=== PATIENT | male | born 1990 | race African-American/Black ===

== ENCOUNTER 2016-08-20 14:00 | Emergency (ER) | payer MEDICAID ==
[~2016-08-20] VITALS: Ht 180.3 cm; Wt 89.7 kg
[2016-08-20 19:08] VITALS: BP 132/95
== END 2016-08-20 15:33 | disposition home or self-care (01) ==
LOC: ED 15:27
DX: S62.351A Nondisplaced fracture of shaft of second metacarpal bone, left hand, initial encounter for closed fracture (principal); W22.8XXA Striking against or struck by other objects, initial encounter; Y93.89 Activity, other specified; Y92.410 Unspecified street and highway as the place of occurrence of the external cause; Y99.8 Other external cause status
CPT/HCPCS: 29125

== ENCOUNTER 2016-08-31 14:37 | Emergency (ER) | payer MEDICAID ==
[~2016-08-31] VITALS: Ht 182.9 cm; Wt 88.7 kg
[2016-08-31 14:42] VITALS: BP 117/63
== END 2016-08-31 15:45 | disposition home or self-care (01) ==
LOC: ED 15:10
DX: S62.321A Displaced fracture of shaft of second metacarpal bone, left hand, initial encounter for closed fracture (principal); W51.XXXA Accidental striking against or bumped into by another person, initial encounter; Y93.89 Activity, other specified; Y99.8 Other external cause status; Y92.89 Other specified places as the place of occurrence of the external cause
CPT/HCPCS: 29125; 99284

== ENCOUNTER 2016-12-07 15:44 | Emergency (ER) | payer MEDICAID ==
[~2016-12-07] VITALS: Ht 180.3 cm; Wt 87.9 kg
[2016-12-07] MEDS ORDERED: DIAZEPAM 5 MG TABLET ONE (16:18)
[2016-12-07] MEDS ORDERED: KETOROLAC 30 MG/1 ML ONE (16:18)
[2016-12-07] MEDS: KETOROLAC 30 MG/1 ML IM ONE ×2 (16:21→16:24)
[2016-12-07] MEDS ORDERED: IBUPROFEN 200 MG TABLET ONE (16:26)
[2016-12-07] MEDS ORDERED: IBUPROFEN 200 MG TABLET PO ONE (16:30)
[2016-12-07] MEDS ORDERED: DIAZEPAM 5 MG TABLET PO ONE (16:30)
[2016-12-07 17:22] VITALS: BP 112/79
== END 2016-12-07 17:28 | disposition home or self-care (01) ==
LOC: ED 16:12
DX: S39.012A Strain of muscle, fascia and tendon of lower back, initial encounter (principal); Z59.0 Homelessness; F12.10 Cannabis abuse, uncomplicated; X58.XXXA Exposure to other specified factors, initial encounter; Y93.89 Activity, other specified; Y99.8 Other external cause status; Y92.89 Other specified places as the place of occurrence of the external cause
CPT/HCPCS: 99283; J1885